=== PATIENT | male | born 1950 | race Caucasian/White ===

== ENCOUNTER → 2016-11-28 | Day surgery (SDC) | payer MEDICARE ==
[~2016-11-28] MED LIST: ACETAMINOPHEN/HYDROcodone 325 MG/7.5 MG TAB ONE; ASPI81 PO; BUPIVACAINE/EPINEPHRINE 0.25% 50 ML VIAL ONE; FISH1000 PO; KETOROLAC TROMETHAMINE 30 MG/ML (IVP) VIAL IV PUSH ONE; MIDAZOLAM HCL 2 MG/2 ML VIAL ONE; MORPHINE SULFATE 4 MG/ML INJ ONE; ONDANSETRON HCL 4 MG/2 ML VIAL IV PUSH ONE; PERC7.5T13 PO; PROBIOTICS; PROPOFOL 200 MG/20 ML AMP IV ONE; SODIUM CHLOR 0.9% 1000 ML BAG IV ONE; TAB-TAB PO; ceFAZolin INJ 1,000 MG VIAL ONE
--- NOTE | 2016-11-28 19:34 | TN ---
cc: NAM MOBLEY MD DATE OF SURGERY 11/28/16 ATTENDING PHYSICIAN/SURGEON MD Susannah PREOPERATIVE DIAGNOSIS Left knee osteoarthritis, torn medial meniscus, multiple loose bodies, possible ACL tear. POSTOPERATIVE DIAGNOSIS Left knee osteoarthritis, torn medial meniscus, torn lateral meniscus, multiple loose bodies, posterior ganglion cyst posterior to PCL, partial ACL tear, chronic. PROCEDURE Left knee arthroscopy with partial medial and lateral meniscectomy, removal multiple loose bodies, evacuation of posterior ganglion cyst. PROCEDURE IN DETAIL Informed consent obtained. The patient taken to the operating room and placed in the supine position on the operating table. He was administered general anesthesia by the anesthesiologist, Dr. De Jesus. The patient had a tourniquet applied to the left thigh. The left leg was prepped with Betadine soap, followed by Betadine paint. Draping commenced in standard fashion with sterile down sheet, sterile towel about the tourniquet, split sheet, stockinette was applied to foot and calf and extremity drape was applied. The Coban was wrapped around the stockinette. The leg was elevated. The patient had been given a gram of Ancef prior to initiation of the operative procedure. At that time a time-out was held and confirmed. The tourniquet was then inflated to 300 mmHg. The leg was allowed to flex over the side of the operating table. An 18 gauge spinal needle was placed in the region of the trans patellar tendon portal. This was infiltrated with 4 cc of 0.25% Marcaine with epinephrine. Infiltration also performed in the medial patellar portal and lateral patellar portal region. Small incision was made in the region of the trans patellar tendon portal, inflow cannula was placed. A second incision was placed in the region of the lateral infrapatellar portal. The arthroscopic cannula was placed. Diagnostic arthroscopy commenced. Medial compartment was examined. There were extensive degenerative changes noted on the articular surfaces of the medial femoral condyle and to an even greater degree medial tibial plateau. The medial meniscus anteriorly was intact, however, ___ there was a complex degenerative tear, medial portal was established. This was probed and then debrided with the biting basket forceps and Delicia meniscal shaver. There was a loose body identified in the posterior medial compartment which was removed. At that time the scope was maneuvered over the intercondylar notch, edge of the lateral compartment, legs placed in a figure four position. There were significant degenerative changes also noted over the lateral femoral condyle and lateral tibial plateau. However, did not appear to be quite as bad as on the medial side. The posterior portion of the lateral meniscus was intact over anteriorly. There was fraying of the free edge and this was debrided with the basket forceps and the meniscal shaver. A loose body was also removed from this region. At that time the leg was flexed over the side of the operating table. The intercondylar notch was examined. Due to arthritis the scope could not be passed in the posterior medial, posterolateral compartments through the intercondylar notch. There was a partial tear of the ACL with some laxity of the ACL noted. PCL was intact. The shaver was passed behind the PCL and the ganglion cyst was entered. This was not well visualized, however, did appear drained. The scope was then maneuvered into the lateral gutter and across the anterior portal of the knee in the infrapatellar region. Several loose bodies were identified in the medial gutter and these were removed. Debridement was also performed. The lateral collateral likewise multiple loose bodies were removed. At that time the knee was inspected and no additional loose bodies were seen. Some loose bodies were suctioned with the suction and multiple pieces were excised with the grasper. At that time the knee was thoroughly irrigated and suctioned. All cannulas were removed. Each portal was closed with a single 4-0 nylon interrupted stitch. Band-Aids, 4x4s, soft roll, Javier wrap were applied to the patient's knee. At that time the tourniquet was deflated. Total tourniquet time was 72 minutes. The patient tolerated the procedure well and was taken to recovery room in stable condition. At the completion of the procedure the sponge count, instrument count, needle counts were correct. Estimated blood loss was less than 10 cc. A total of 18,000 cc of sterile saline was utilized for irrigation during this procedure. MD AMPARO Luu/AMITA /2:59 PM /7:05 PM
== END | disposition home or self-care (01) ==
LOC: ESDC 11:52
PROVIDERS: ATTEND Orthopaedic Surgery
DX: S83.232A Complex tear of medial meniscus, current injury, left knee, initial encounter (principal); S83.282A Other tear of lateral meniscus, current injury, left knee, initial encounter; M17.12 Unilateral primary osteoarthritis, left knee; M67.462 Ganglion, left knee
CPT/HCPCS: 01400; 29880; J0690; J1885; J2250; J2270; J2405; J3010; J7030